=== PATIENT | male | born 1985 | race Caucasian/White ===

== ENCOUNTER → 2017-02-03 | Outpatient (CLI) | payer OTHER ==
[~2017-02-03] MED LIST: OXYC1TAB23 PO; no medications
--- NOTE | 2017-02-11 15:03 | SLEEPCENT ---
DATE OF PROCEDURE: 02/03/2017 REFERRING PROVIDER: HUBERT Leigh, and Dr. Lang Harrington. INTERPRETATION: Nocturnal polysomnography was performed for a restudy following surgery done for mild obstructive sleep apnea. He continued to have symptoms of excessive daytime sleepiness, snoring, and nonrestorative sleep. A total of 7 hours and 42 minutes of data was reviewed with 428 minutes of sleep identified. Sleep latency was 25.5 minutes. Rapid eye movement (REM) latency was 133 minutes. All stages of sleep were identified. Sleep efficiency was 93.6%. EKG showed normal sinus rhythm with an average heart rate of 74 beats per minute. Speeding and slowing was noted surrounding some respiratory events. No epileptiform discharge observed. There were 15 respiratory events identified of 10 seconds in duration or longer for an apnea-hypopnea index (AHI) of 2.1. The events were predominantly obstructive apneas/hypopneas. Respiratory effort-related arousal (RERA) index was 1.8, giving a total respiratory disturbance index (RDI) of 3.9. Mean saturation for this study was 95% with a minimum recorded value of 90%. Arousal index was 4.9. Limb movement index was 1.1. IMPRESSION: Snoring, no evidence of significant sleep disordered breathing. RECOMMENDATIONS: There does not appear to be any residual obstructive sleep apnea at this time following his surgery. Recommend consideration of possible causes for his residual symptoms including, but not limited to, sleep insufficiency, narcolepsy, medications, or other.
== END ==
LOC: M SLEEP 20:00
PROVIDERS: ATTEND Internal Medicine Pulmonary Disease
DX: G47.33 Obstructive sleep apnea (adult) (pediatric) (principal)

== ENCOUNTER → 2017-02-24 | Outpatient (REF) | payer OTHER | LOC: M SFHCPLAZ 10:45 | PROVIDERS: ATTEND Urology | DX: Z30.2 Encounter for sterilization (principal) ==

== ENCOUNTER → 2017-05-05 | Outpatient (REF) | payer OTHER ==
[2017-05-05 12:16] LABS: IMMMOTILE SPERM CENTRIFUGED ABSENT (ABSENT); IMMOTILE SPERM ABSENT (ABSENT); MOTILE SPERM ABSENT (ABSENT); MOTILE SPERM CENTRIFUGED ABSENT (ABSENT)
[2017-05-05 12:17] LABS: SPERM ABNORMAL FORMS WBC'S NOTED
== END ==
LOC: M SMT 11:37
PROVIDERS: ATTEND Urology
DX: Z30.2 Encounter for sterilization (principal)